=== PATIENT | male | born 1955 | race Caucasian/White ===

== ENCOUNTER 2017-04-03 13:37 | Outpatient (CLI) | payer OTHER | END 2017-04-03 13:38 | disposition home or self-care (01) | LOC: SC 13:37 | PROVIDERS: ATTEND Internal Medicine Pulmonary Disease | DX: G47.30 Sleep apnea, unspecified (principal); G47.10 Hypersomnia, unspecified; R06.83 Snoring; G47.8 Other sleep disorders | CPT/HCPCS: 99203; 99212 ==

== ENCOUNTER 2017-05-29 13:49 | Outpatient (CLI) | payer OTHER | END 2017-05-29 13:50 | disposition home or self-care (01) | LOC: SC 13:49 | PROVIDERS: ATTEND Internal Medicine Pulmonary Disease | DX: G47.33 Obstructive sleep apnea (adult) (pediatric) (principal) | CPT/HCPCS: 99212; 99213 ==

== ENCOUNTER 2017-07-30 13:11 | Outpatient (CLI) | payer OTHER | END 2017-07-30 13:12 | disposition home or self-care (01) | LOC: SC 13:11 | PROVIDERS: ATTEND Nurse Practitioner Family | DX: G47.33 Obstructive sleep apnea (adult) (pediatric) (principal) | CPT/HCPCS: 99212; 99214 ==

== ENCOUNTER 2017-09-10 13:10 | Outpatient (CLI) | payer OTHER | END 2017-09-10 13:11 | disposition home or self-care (01) | LOC: SC 13:10 | PROVIDERS: ATTEND Nurse Practitioner Family | DX: G47.33 Obstructive sleep apnea (adult) (pediatric) (principal) | CPT/HCPCS: 99212; 99214 ==

== ENCOUNTER 2017-11-05 13:03 | Outpatient (CLI) | payer OTHER | END 2017-11-05 13:04 | disposition home or self-care (01) | LOC: SC 13:03 | PROVIDERS: ATTEND Nurse Practitioner Family | DX: G47.33 Obstructive sleep apnea (adult) (pediatric) (principal) | CPT/HCPCS: 99212; 99214 ==

== ENCOUNTER 2018-09-10 13:35 | Outpatient (CLI) | payer OTHER | END 2018-09-10 13:36 | disposition home or self-care (01) | LOC: SC 13:35 | PROVIDERS: ATTEND Nurse Practitioner Family | DX: G47.33 Obstructive sleep apnea (adult) (pediatric) (principal); R03.0 Elevated blood-pressure reading, without diagnosis of hypertension | CPT/HCPCS: 99212; 99214 ==

== ENCOUNTER 2018-11-05 14:22 | Outpatient (CLI) | payer OTHER | END 2018-11-05 14:23 | disposition home or self-care (01) | LOC: SC 14:22 | PROVIDERS: ATTEND Nurse Practitioner Family | DX: G47.33 Obstructive sleep apnea (adult) (pediatric) (principal) | CPT/HCPCS: 99212; 99214 ==